=== PATIENT | male | born 1990 | race Two or more races ===

== ENCOUNTER 2021-09-27 17:44 | Emergency (ER) | payer MEDICAID ==
[~2021-09-27] VITALS: Ht 175.3 cm; Wt 81.6 kg
[2021-09-27] MEDS ORDERED: cefTRIAXone 1GM/50ML D5W 50 ML IV ONE (18:15)
[2021-09-27] MEDS ORDERED: SODIUM CHLORIDE 0.9% 1,000 ML IV ONE ×3 (18:15→18:30)
[2021-09-27] MEDS ORDERED: SODIUM CHLORIDE 0.9% 500 ML IV ONE (18:30)
[2021-09-27] MEDS ORDERED: AZITHROMYCIN 500MG/ 250ML 250 ML IV ONE (18:30)
[2021-09-27 18:39] LABS: Basophils # (auto) 0.1 10 ^3/uL (0-0.2); Basophils % (auto) 1.3 % (0.0-2.0); Eosinophils # (auto) 0.1 10 ^3/uL (0-0.8); Eosinophils % (auto) 0.7 % (0.0-7.0); Hematocrit 41.3 % (41.0-53.0); Hemoglobin 14.2 g/dL (13.5-17.5); Lymphocytes # (auto) 0.3 10 ^3/uL (0.4-5.4); Lymphocytes % (auto) 2.8 % (10.0-50.0); Mean Corpuscular Hemoglobin 29.7 pg (28.0-32.0); Mean Corpuscular Hgb Conc. 34.5 g/dL (32.0-36.0); Mean Corpuscular Volume 86.3 fL (80.0-100.0); Monocytes % (auto) 10.4 % (0.0-12.0); Neutrophils # (auto) 8.2 10 ^3/uL (1.6-8.6); Neutrophils % (auto) 84.8 % (37.0-80.0); Nucleated Red Blood Cells % 0.1 %; Red Blood Cells 4.79 10^6/uL (4.5-5.90); Red Cell Distribution Width 13.5 % (11.8-14.3); White Blood Cell 9.6 10^3/uL (4.4-10.8)
[2021-09-27 18:55] LABS: Albumin 4.4 g/dL (3.4-5.0); Calcium 9.4 mg/dL (8.5-10.1); Potassium 4.8 mmol/L (3.5-5.1)
[2021-09-27 18:57] LABS: BUN/Creatinine Ratio 9.2
[2021-09-27 18:59] LABS: Bilirubin, Total 0.7 mg/dL (0.2-1.0); Total Protein 8.2 g/dL (6.4-8.2)
[2021-09-27] MEDS ORDERED: ACETAMINOPHEN 500 MG TAB PO ONE (19:00)
[2021-09-27 23:45] VITALS: BP 140/75
== END 2021-09-28 | disposition home or self-care (01) ==
LOC: ER 17:44
DX: F15.10 Other stimulant abuse, uncomplicated (principal); E86.0 Dehydration
CPT/HCPCS: 36415; 71045; 80053; 83605; 84484; 85025; 87040; 96361; 96365; 96366; 96367; 99284; J0456; J0696; J7030; J7040

== ENCOUNTER 2022-05-23 19:11 | Emergency (ER) | payer BC, MEDICAID ==
[~2022-05-23] VITALS: Ht 175.3 cm; Wt 82.0 kg
[2022-05-23 19:11] VITALS: BP 162/93
[2022-05-23 20:43] LABS: Urine Bacteria NONE SEEN /hpf (None Seen); Urine Blood 3+ /uL (Negative); Urine Mucus FEW (None Seen); Urine Specific Gravity 1.023 (1.001-1.035); Urine WBC 10 /hpf (0 - 3)
[2022-05-23 22:57] LABS: Basophils # (auto) 0.1 10 ^3/uL (0-0.2); Basophils % (auto) 0.9 % (0.0-2.0); Eosinophils # (auto) 0.3 10 ^3/uL (0-0.8); Eosinophils % (auto) 2.6 % (0.0-7.0); Hematocrit 39.7 % (41.0-53.0); Hemoglobin 13.2 g/dL (13.5-17.5); Lymphocytes # (auto) 2.1 10 ^3/uL (0.4-5.4); Lymphocytes % (auto) 18.3 % (10.0-50.0); Mean Corpuscular Hemoglobin 28.9 pg (28.0-32.0); Mean Corpuscular Hgb Conc. 33.3 g/dL (32.0-36.0); Mean Corpuscular Volume 86.7 fL (80.0-100.0); Monocytes # (auto) 1.4 10 ^3/uL (0-1.3); Monocytes % (auto) 12.1 % (0.0-12.0); Neutrophils # (auto) 7.5 10 ^3/uL (1.6-8.6); Neutrophils % (auto) 66.1 % (37.0-80.0); Red Blood Cells 4.57 10^6/uL (4.5-5.90); White Blood Cell 11.4 10^3/uL (4.4-10.8)
[2022-05-23 23:16] LABS: Albumin 4.2 g/dL (3.4-5.0); Calcium 9.4 mg/dL (8.5-10.1); Potassium 4.3 mmol/L (3.5-5.1)
[2022-05-23 23:20] LABS: BUN/Creatinine Ratio 9.5; Bilirubin, Total 0.5 mg/dL (0.2-1.0)
[2022-05-23] MEDS ORDERED: NITR-87 PO (23:34)
[2022-05-23] MEDS ORDERED: TAM04C PO (23:34)
[2022-05-23] MEDS ORDERED: cefTRIAXone SOD 1,000 MG VL IM ONE (23:45)
== END 2022-05-24 00:26 | disposition home or self-care (01) ==
LOC: ER 19:11
DX: N39.0 Urinary tract infection, site not specified (principal); N20.0 Calculus of kidney; F15.90 Other stimulant use, unspecified, uncomplicated; Z59.00 Homelessness unspecified
CPT/HCPCS: 36415; 74176; 80053; 81001; 83690; 85025

== ENCOUNTER 2022-10-19 09:41 | Emergency (ER) | payer BC, MEDICAID ==
[~2022-10-19] VITALS: Ht 175.3 cm; Wt 98.0 kg
[~2022-10-19 09:41] MED LIST: NITR-87 PO; TAMS-35 PO
[2022-10-19 10:10] VITALS: BP 144/93
[2022-10-19] MEDS ORDERED: BUPR1SUB33 SL (10:36)
[2022-10-19] MEDS ORDERED: BUPR8MIS SL (10:39)
== END 2022-10-19 10:43 | disposition home or self-care (01) ==
LOC: ER 09:41
DX: F15.10 Other stimulant abuse, uncomplicated (principal); Z76.0 Encounter for issue of repeat prescription